=== PATIENT | male | born 1975 | race Caucasian/White ===

== ENCOUNTER 2021-09-15 21:27 | Emergency (ER) | payer BC ==
[~2021-09-15] VITALS: Ht 172.7 cm; Wt 108.9 kg
[2021-09-15 21:47] VITALS: BP 168/85
--- NOTE | 2021-09-15 21:56 | NUR ---
PT WAS TRIAGED AND THEN LWBS.
== END 2021-09-15 21:56 | disposition left against medical advice (07) ==
LOC: MED 21:27
DX: J18.9 Pneumonia, unspecified organism (principal); Z53.21 Procedure and treatment not carried out due to patient leaving prior to being seen by health care provider